=== PATIENT | male | born 1980 | race Hispanic/Latino ===

== ENCOUNTER 2019-02-14 13:38 | Emergency (ER) | payer OTHER ==
[2019-02-14 14:53] VITALS: BP 127/83
[2019-02-14] MEDS ORDERED: ACETAMINOPHEN 500 MG TAB PO ONE (18:42)
[2019-02-14] MEDS ORDERED: LIDOCAINE-MPF (1%) 10 MG/1 ML VIAL 5 ML INFILTRATI ONE (18:42)
--- NOTE | 2019-02-14 19:16 | Emergency Department Report ---
- General Chief Complaint: Laceration/Recheck/Suture Stated Complaint: LACERATION TO RT KNEE Source: patient Mode of arrival: Ambulatory Limitations: No Limitations - History of Present Illness Initial Comments: Patient is a 38 yo WM with no past medical history who presents to the ED with c/o acute onset persistent painful bleeding anterior right lower leg laceration after a piece of metal hit his right lower leg and cut his right lower leg about 7 hours ago. Patient states that the bleeding has been controlled. Patient also states that he is upto date with his tetanus vaccination. Patient denies nu mbness, tingling or weakness of right lower leg or dizziness -: Sudden, hour(s) (7) Location: other (anterior right lower leg) Extremity Location: Right: Lower Leg (Anterior right lower leg laceration) Place: home Patient Tetanus UTD: Yes Context: accidental Associated Symptoms: pain. denies: loss of feeling/numbness, suspect foreign body present, unable to move injured part, weakness followed by dizziness, nausea/vomiting, fever - Related Data Previous Rx's Medication Instructions Recorded Last Taken Type Ibuprofen [Motrin] 600 mg PO Q8H PRN #24 tablet 02/14/19 Unknown Rx cephALEXin [Keflex] 500 mg PO Q8HR #30 cap 02/14/19 Unknown Rx Allergies Allergy/AdvReac Type Severity Reaction Status Date / Time No Known Allergies Allergy Verified 02/14/19 13:42 ED Review of Systems ROS: Stated complaint: LACERATION TO RT KNEE Other details as noted in HPI Constitutional: denies: chills, fever Eyes: denies: eye pain, eye discharge, vision change ENT: denies: ear pain, throat pain Respiratory: denies: cough, shortness of breath, wheezing Cardiovascular: denies: chest pain, palpitations, dyspnea on exertion, syncope, paroxysmal nocturnal dyspnea Endocrine: no symptoms reported Gastrointestinal: denies: abdominal pain, nausea, vomiting, diarrhea, constipation, hematemesis Genitourinary: denies: urgency, dysuria Musculoskeletal: arthralgia (Anterior right lower leg bleeding laceration with pain). denies: back pain, joint swelling Skin: other (Anterior right lower leg bleeding laceration). denies: rash, lesions Neurological: denies: headache, weakness, paresthesias, confusion, abnormal gait Psychiatric: denies: anxiety, depression Hematological/Lymphatic: denies: easy bleeding, easy bruising ED Past Medical Hx - Past Medical History Previous Medical History?: No - Surgical History Past Surgical History?: No - Social History Smoking Status: Current Every Day Smoker Substance Use Type: Alcohol - Medications Home Medications: Home Medications Medication Instructions Recorded Confirmed Last Taken Type Ibuprofen [Motrin] 600 mg PO Q8H PRN #24 tablet 02/14/19 Unknown Rx cephALEXin [Keflex] 500 mg PO Q8HR #30 cap 02/14/19 Unknown Rx ED Physical Exam - General Limitations: No Limitations General appearance: alert, in no apparent distress - Head Head exam: Present: atraumatic, normocephalic, normal inspection - Eye Eye exam: Present: normal appearance, PERRL, EOMI Pupils: Present: normal accommodation - ENT ENT exam: Present: normal exam, normal orophraynx, mucous membranes moist, TM's normal bilaterally, normal external ear exam - Neck Neck exam: Present: normal inspection, full ROM - Respiratory Respiratory exam: Present: normal lung sounds bilaterally. Absent: respiratory distress, wheezes, rhonchi, chest wall tenderness, decreased breath sounds - Cardiovascular Cardiovascular Exam: Present: regular rate, normal rhythm, normal heart sounds. Absent: systolic murmur, diastolic murmur, rubs, gallop - GI/Abdominal GI/Abdominal exam: Present: soft, normal bowel sounds. Absent: tenderness, hyperactive bowel sounds, hypoactive bowel sounds - Extremities Exam Extremities exam: Present: normal inspection, full ROM, tenderness (Anterior right lower leg tenderness due to a bleeding 6 cm laceration), normal capillary refill - Back Exam Back exam: Present: normal inspection, full ROM. Absent: tenderness, muscle spasm, paraspinal tenderness - Neurological Exam Neurological exam: Present: alert, oriented X3, CN II-XII intact, normal gait, reflexes normal - Psychiatric Psychiatric exam: Present: normal affect, normal mood - Skin Skin exam: Present: warm, dry, normal color, other (Bleeding anterior right lower leg 6 cm laceration). Absent: rash ED Course Vital Signs 02/14/19 14:51 Temperature 98.1 F Pulse Rate 74 Respiratory 18 Rate Blood Pressure 127/83 O2 Sat by Pulse 100 Oximetry - Reevaluation(s) Reevaluation #1: 02/14/19 19:37 Patient treated for pain. Patient tolerated suturing procedure well. Patient discharged home on medications, and advised to return to the ED or to his PCP in 12-14 days for suture removal. - Laceration /Wound Repair Right Anterior Leg Wound Location: lower extremity (Anterior right lower leg) Wound Length (cm): 6 Wound's Depth, Shape: into muscle, irregular, flap Wound Explored: contaminated Irrigated w/ Saline (ccs): 60 Betadine Prep?: Yes Anesthesia: 1% Lidocaine Volume Anesthetic (ccs): 5 Wound Debrided: extensive Wound Repaired With: sutures Suture Size/Type: 3:0, proline Number of Sutures: 13 Layer Closure?: No Sterile Dressing Applied?: Yes Progress: Patient tolerated the procedure well. Patient discharged home on prophylactic antibiotics. Patient advised to return to the ED immediately if symptoms get worse, otherwise return to the ED in 12-14 days for reevaluation and suture removal. ED Medical Decision Making - Medical Decision Making 38 yo WM presented to the ED with bleeding anterior right lower leg laceration. Patient's wound cleaned and laceration protocol observed for sutures. Patient tolerated procedure well. Patient upto date with Tetanus, and was treated for pain. Patient discharged home on prophylactic oral antibiotics and pain medications. Patient advised to return to the ED immediately if symptoms get worse. Patient advised to return to the ED for suture removal in 12-14 days. - Differential Diagnosis right lower leg laceration; right lower leg contusion Critical care attestation.: If time is entered above; I have spent that time in minutes in the direct care of this critically ill patient, excluding procedure time. ED Disposition Clinical Impression: Laceration of right lower leg without complication Qualifiers: Encounter type: initial encounter Qualified Code(s): S81.811A - Laceration without foreign body, right lower leg, initial encounter Disposition: DC- TO HOME OR SELFCARE Is pt being admited?: No Does the pt Need Aspirin: No Condition: Stable Instructions: Suture Care (ED), Laceration (ED) Additional Instructions: Take medications with food, drink plenty of fluids and follow up with your Primary Care Physician in 7-10 days for reevaluation. Return to the ED immediately if symptoms get worse. Otherwise return to the ED in 12-14 days for suture removal. Prescriptions: cephALEXin [Keflex] 500 mg PO Q8HR #30 cap Ibuprofen [Motrin] 600 mg PO Q8H PRN #24 tablet PRN Reason: Pain Referrals: [facility] [Outside] - 3-5 Days Time of Disposition: 19:18 Print Language: RWANDAN
== END 2019-02-14 21:30 | disposition home or self-care (01) ==
LOC: ED 13:38
DX: S81.811A Laceration without foreign body, right lower leg, initial encounter (principal); F17.200 Nicotine dependence, unspecified, uncomplicated; W45.8XXA Other foreign body or object entering through skin, initial encounter; Y93.89 Activity, other specified; Y92.89 Other specified places as the place of occurrence of the external cause; Y99.8 Other external cause status